=== PATIENT | female | born 1985 | race Caucasian/White ===

== ENCOUNTER 2019-02-23 06:47 | Emergency (ER) | payer MEDICAID ==
--- NOTE | 2019-02-23 06:58 | ED ---
General Adult HPI - General Chief complaint: Back Pain/Injury Stated complaint: back pain Time Seen by Provider: 02/23/19 06:57 Source: patient, family, RN notes reviewed Mode of arrival: ambulatory Limitations: no limitations - History of Present Illness Initial comments: 33-year-old female without any significant past medical history presents to the emergency department for right-sided back pain. Patient states this started a few days ago. Patient states the pain is a dull pain in her lower back that radiates sharp pain to her right buttock and into her right thigh. States that movement seems to make this worse. States that bending over causes pain. Denies any bladder or bowel changes. Denies any numbness or tingling of the groin or buttocks. Denies any weakness of the lower extremities bilaterally. Denies any trauma to her back. 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 Denies any midline pain. Denies any fevers or chills. Denies any history of IV drug abuse. Denies any recent bacterial infections. Patient has no other complaints at this time including shortness of breath, chest pain, abdominal pain, nausea or vomiting, headache, or visual changes. - Related Data Previous Rx's Medication Instructions Recorded Cyclobenzaprine [Flexeril] 10 mg PO TID PRN #9 tab 02/23/19 predniSONE 50 mg PO DAILY #5 tablet 02/23/19 Allergies Allergy/AdvReac Type Severity Reaction Status Date / Time amoxicillin [From Augmentin] Allergy Rash/Hives Verified 02/23/19 06:56 clavulanic acid Allergy Rash/Hives Verified 02/23/19 06:56 [From Augmentin] Review of Systems ROS Statement: Those systems with pertinent positive or pertinent negative responses have been documented in the HPI. ROS Other: All systems not noted in ROS Statement are negative. Past Medical History Past Medical History: No Reported History History of Any Multi-Drug Resistant Organisms: None Reported Past Surgical History: No Surgical Hx Reported Past Psychological History: No Psychological Hx Reported Smoking Status: Never smoker Past Alcohol Use History: Occasional Past Drug Use History: None Reported General Exam Limitations: no limitations General appearance: alert, in no apparent distress Head exam: Present: atraumatic, normocephalic, normal inspection Eye exam: Present: normal appearance, PERRL, EOMI. Absent: scleral icterus, conjunctival injection, periorbital swelling ENT exam: Present: normal exam, mucous membranes moist Neck exam: Present: normal inspection, full ROM. Absent: tenderness, meningismus, lymphadenopathy Respiratory exam: Present: normal lung sounds bilaterally. Absent: respiratory distress, wheezes, rales, rhonchi, stridor Cardiovascular Exam: Present: regular rate, normal rhythm, normal heart sounds. Absent: systolic murmur, diastolic murmur, rubs, gallop, clicks GI/Abdominal exam: Present: soft, normal bowel sounds. Absent: distended, tenderness (no abdominal tenderness on exam.), guarding, rebound, rigid Back exam: Present: paraspinal tenderness (minimal R SI joint pain to palpation). Absent: CVA tenderness (R), CVA tenderness (L), vertebral tenderness Neurological exam: Present: alert Psychiatric exam: Present: normal affect, normal mood Skin exam: Present: warm, dry, intact, normal color. Absent: rash Course Vital Signs 02/23/19 02/23/19 06:52 08:06 Temperature 98.2 F 98.0 F Pulse Rate 102 H 95 Respiratory 20 15 Rate Blood Pressure 154/99 137/97 O2 Sat by Pulse 99 100 Oximetry Medical Decision Making - Medical Decision Making 33-year-old female without any significant past medical history presents for right-sided back pain. This started a few days ago and radiates to her right buttock and into her right leg. States that when she lays down this pain goes away but when she is up moving and bending it worsens. Denies any numbness or tingling of the groin her buttock, denies blood or bowel changes, denies fevers or chills or any history of IV drug abuse. Does admit to pushing large carts for her job. On exam neurovascular status intact in the right lower extremity. Positive straight leg raise test. Patient has pain with flexion of the low back. At this time x-ray was not ordered as there is no history of trauma, patient would benefit more from MRI if this continues. Patient likely has sciatic pain. Patient was given pain medication which did help somewhat. Patient will be given a prescription for steroids and muscle relaxer, discussed not to drive or primary machinery while taking this. She will continue Motrin and Tylenol. She was given 2 days off work but I did discuss doing stretches and light activity to prevent spasming. She will return here if she has any worsening symptoms. Otherwise she will follow-up with primary care. - Lab Data Lab Results 02/23/19 02/23/19 Range/Units 07:11 07:11 Urine Color Yellow Urine Appearance Cloudy H (Clear) Urine pH 6.0 (5.0-8.0) Ur Specific [place] 1.022 (1.001-1.035) Urine Protein Negative (Negative) Urine Glucose (UA) Negative (Negative) Urine Ketones Negative (Negative) Urine Blood Negative (Negative) Urine Nitrite Negative (Negative) Urine Bilirubin Negative (Negative) Urine Urobilinogen <2.0 (<2.0) mg/dL Ur Leukocyte Esterase Negative (Negative) Urine RBC 1 (0-5) /hpf Urine WBC 1 (0-5) /hpf Ur Squamous Epith Cells 8 H (0-4) /hpf Urine Bacteria Few H (None) /hpf Urine Mucus Rare H (None) /hpf Urine HCG, Qual Not Detected (Not Detectd) Disposition Clinical Impression: Mechanical back pain, Right sciatic nerve pain Disposition: HOME SELF-CARE Condition: Good Instructions (If sedation given, give patient instructions): Acute Low Back Pain (ED), Lower Back Exercises (ED) Additional Instructions: Please alternate Motrin and Tylenol for pain. He may take muscle relaxer as needed but do not drive or operate machinery while taking this. Follow up with primary care in 1-2 days. Return if you have any worsening symptoms such as worsening pain, fevers or chills, weakness of the legs, or numbness or tingling of the greater buttock. Prescriptions: Cyclobenzaprine [Flexeril] 10 mg PO TID PRN #9 tab PRN Reason: Pain predniSONE 50 mg PO DAILY #5 tablet Is patient prescribed a controlled substance at d/c from ED?: No Referrals: Param Ziegler MD [Primary Care Provider] - 1-2 days Time of Disposition: 08:20
[2019-02-23] MEDS ORDERED: predniSONE 50 MG TAB PO STA (07:15)
[2019-02-23] MEDS ORDERED: ORPHENADRINE 30 MG/ML 2 ML VIAL IM STA (07:15)
[2019-02-23] MEDS ORDERED: KETOROLAC 30 MG/ML 1 ML VIAL IM STA (07:15)
[2019-02-23 07:32] LABS: Appearance,Urine Cloudy (Clear); Bacteria,Urine Few /hpf; Bilirubin,Urine Negative (Negative); Blood,Urine Negative (Negative); Color,Urine Yellow; Glucose,Urine (UA) Negative (Negative); Ketones,Urine Negative (Negative); Leukocyte Esterase,Urine Negative (Negative); Mucus,Urine Rare /hpf; Nitrite,Urine Negative (Negative); Protein,Urine Negative (Negative); RBC,Urine 1 /hpf (0-5); Specific Gravity,Urine 1.022 (1.001-1.035); Squamous Epithelial Cell,Urine 8 /hpf (0-4); Urobilinogen,Urine <2.0 mg/dL (<2.0); WBC,Urine 1 /hpf (0-5)
[2019-02-23 08:09] VITALS: BP 137/97; PULSE 95; RESP 15; TEMP 98
== END 2019-02-23 08:23 | disposition home or self-care (01) ==
LOC: EC 06:47
DX: M54.41 Lumbago with sciatica, right side (principal); Z88.0 Allergy status to penicillin
CPT/HCPCS: 81001; 81025; 96372 ×2; 99283; J2360; J1885; J7512